=== PATIENT | female | born 1965 | race Caucasian/White ===

== ENCOUNTER 2017-05-05 15:20 | Emergency (ER) | payer MEDICARE, MEDICAID ==
--- NOTE | 2017-05-05 17:07 | ER Document Report ---
ED General - General Chief Complaint: Shoulder Pain Stated Complaint: SHOULDER INJURY Time Seen by Provider: 05/05/17 16:50 Notes: 51-year-old female [id number] with history of cervical disc disease and "herniated disks all open down my spine" presents with right shoulder pain posterior anterior and lateral radiating to her elbow constant worse with movement since she had 2 injuries lifting to objects the day before and after Ximena. No numbness or tingling. No elbow injury. - Related Data Allergies/Adverse Reactions: No Known Allergies Allergy (Unverified 05/05/17 15:23) Home Medications: Current Home Medications Cyclobenzaprine HCl [Flexeril 10 mg Tablet] 10 mg PO PRN PRN 05/05/17 [History] Gabapentin [Neurontin 300 mg Capsule] 300 mg PO PRN PRN 05/05/17 [History] Hydrocodone/Acetaminophen [[place] 10-325 mg Tablet] 10 mg PO PRN PRN 05/05/17 [ History] Past Medical History - Social History Smoking Status: Current Every Day Smoker Family History: None Review of Systems - Review of Systems Notes: REVIEW OF SYSTEMS GEN: Denies fever, chills, weight loss ENT: Denies sore throat, nasal discharge, ear pain EYES: Denies blurry vision, eye pain, discharge CV: Denies chest pain, palpitations, edema RESP: Denies cough, shortness of breath, wheezing GI: Denies abdominal pain, nausea, vomiting, diarrhea MSK: Arm pain SKIN: Denies rash, skin lesions LYMPH: Denies swollen glands/lymph nodes NEURO: Denies headache, focal weakness or numbness, dizziness PSYCH: Denies depression, suicidal or homicidal ideation PHYSICAL EXAMINATION General: No acute distress, well-nourished Head: Atraumatic, normocephalic ENT: Mouth normal, oropharynx moist, no exudates or tonsillar enlargement Eyes: Conjunctiva normal, pupils equal, lids normal Neck: No JVD, supple, no guarding CVS: Normal rate, regular rhythm, no murmurs Resp: No resp distress, equal and normal breath sounds bilaterally GI: Nondistended, soft, no tenderness to palpation, no rebound or guarding Ext: No deformities, no edema, normal range of motion in upper and lower ext painful shoulder range of motion without crepitus. Mild tenderness over the radial head on the right without bruising. Back: No CVA or midline TTP Skin: No rash, warm Lymphatic: No lymphadeopathy noted Neuro: Awake, alert. Face symmetric. GCS 15. Course - Re-evaluation Re-evalutation: 05/05/17 17:08 Repeat shoulder injury in a patient with chronic orthopedic problems. Differential includes rotator cuff less likely bony because she tells me she had an x-ray at urgent care of her shoulder which was normal. She is requesting an MRI. I explained why this is not possible. I did order an elbow x-ray because she has some tenderness over the radial head. Patient is on chronic pain medication. Will recommend ice elevation weightbearing as tolerated and Motrin addicted to her normal regimen. I have discussed with the patient there likely diagnosis, aftercare plan, follow-up plans and my usual and customary return precautions. They verbalized understanding of this. 05/05/17 17:35 X-ray elbow negative - Diagnostic Test Radiology reviewed: Image reviewed, Reports reviewed Discharge - Discharge Clinical Impression: Right shoulder injury Qualifiers: Encounter type: initial encounter Qualified Code(s): S49.91XA - Unspecified injury of right shoulder and upper arm, initial encounter Condition: Good Disposition: HOME, SELF-CARE Additional Instructions: As we discussed, your x-rays are normal. There are many structures in her shoulder that could be injured, and you probably need to have an MRI done as an outpatient. Please add Motrin to your pain regimen, ice and elevate your shoulder, and follow-up with your orthopedist when you get back to [place].
--- NOTE | 2017-05-05 17:30 | RADIOLOGY REPORT (SQ) ---
EXAM DESCRIPTION: ELBOW RIGHT OVER 2 VIEWS COMPLETED DATE/TIME: 05/05/2017 5:14 pm REASON FOR STUDY: radial head ttp inj COMPARISON: None. NUMBER OF VIEWS: Four views. TECHNIQUE: AP, lateral, and both oblique radiographic images acquired of the right elbow. LIMITATIONS: None. FINDINGS: MINERALIZATION: Normal. BONES: No acute fracture or dislocation. No worrisome bone lesions. JOINT: No effusion. SOFT TISSUES: No soft tissue swelling. No foreign body. OTHER: No other significant finding. IMPRESSION: NEGATIVE STUDY OF THE RIGHT ELBOW. NO RADIOGRAPHIC EVIDENCE OF ACUTE INJURY. TECHNICAL DOCUMENTATION: JOB ID: [id number] [employer]- All Rights Reserved
[2017-05-05 18:01] VITALS: BP 110/74
== END 2017-05-05 17:59 | disposition home or self-care (01) ==
LOC: ER 15:20
DX: S49.91XA Unspecified injury of right shoulder and upper arm, initial encounter (principal); M25.511 Pain in right shoulder; M50.30 Other cervical disc degeneration, unspecified cervical region; Z79.899 Other long term (current) drug therapy; X50.9XXA Other and unspecified overexertion or strenuous movements or postures, initial encounter; F17.200 Nicotine dependence, unspecified, uncomplicated
CPT/HCPCS: 99283

== ENCOUNTER 2018-07-06 18:57 | Emergency (ER) | payer MEDICARE, MEDICAID ==
[2018-07-06] MEDS ORDERED: METOCLOPRAMIDE HCL ORAL SOLN 10 MG/10 ML UDCUP PO ONE (20:21)
[2018-07-06] MEDS ORDERED: LIDOCAINE 2% VISCOUS SOLN 20 ML UDCUP PO PRN (20:21)
[2018-07-06] MEDS ORDERED: MAG HYDROX/AL HYDROX/SIMETH SUSP 30 ML UDCUP PO PRN (20:21)
[2018-07-06] MEDS ORDERED: MAG HYDROX/AL HYDROX/SIMETH SUSP 30 ML UDCUP PO ONE (20:21)
[2018-07-06] MEDS ORDERED: LIDOCAINE 2% VISCOUS SOLN 20 ML UDCUP PO ONE (20:21)
[2018-07-06] MEDS ORDERED: METOCLOPRAMIDE HCL ORAL SOLN 10 MG/10 ML UDCUP PO PRN (20:21)
--- NOTE | 2018-07-06 20:21 | ER Document Report ---
ED Medical Screen (RME) - General Chief Complaint: Chest Pain Stated Complaint: CHEST PAIN Time Seen by Provider: 07/06/18 20:20 Notes: 52 years old female presents today with chest pain, mid abdominal pain radiating the back the last few days. No nausea vomiting. On examination lungs clear abdomen tender over the epigastrium - Related Data Allergies/Adverse Reactions: No Known Allergies Allergy (Verified 07/06/18 18:59) Past Medical History Renal/ Medical History: Denies: Hx Peritoneal Dialysis Physical Exam - Vital signs Vitals: Temp Pulse Resp BP Pulse Ox 97.8 F 73 18 136/82 H 98 07/06/18 19:16 07/06/18 19:16 07/06/18 19:16 07/06/18 19:16 07/06/18 19:16 Course - Vital Signs Vital signs: Temp Pulse Resp BP Pulse Ox 97.8 F 73 18 136/82 H 98 07/06/18 19:16 07/06/18 19:16 07/06/18 19:16 07/06/18 19:16 07/06/18 19:16
--- NOTE | 2018-07-06 21:31 | ER Document Report ---
ED General - General Chief Complaint: Chest Pain Stated Complaint: CHEST PAIN Time Seen by Provider: 07/06/18 20:20 Notes: Patient is a 52-year-old female without chronic medical problems, had a cardiac catheterization 2 years ago which was noted to be normal who presents with chest pain. In triage the patient did complain of abdominal pain but denies this complaint to me. States that she has a central chest discomfort that is a stabbing, aching pain that intimately radiates into her upper back. States that the pain is there constantly although has periods of worsening. No obvious exacerbating or relieving factors. Denies history of similar symptoms in the past. No associated shortness of breath, nausea or vomiting. On my secondary assessment the patient did complain that the pain was worsened by breathing. She has no history of DVT or pulmonary embolus. Does not use any form of estrogen. - Related Data Allergies/Adverse Reactions: No Known Allergies Allergy (Verified 07/06/18 18:59) Past Medical History - General Information source: Patient - Social History Smoking Status: Current Every Day Smoker Frequency of alcohol use: None Drug Abuse: None Lives with: Alone Family History: Reviewed & Not Pertinent Patient has suicidal ideation: No Patient has homicidal ideation: No - Past Medical History Cardiac Medical History: Reports: Hx Hypercholesterolemia, Hx Hypertension Renal/ Medical History: Denies: Hx Peritoneal Dialysis Musculoskeletal Medical History: Reports Hx Arthritis - bursitis Past Surgical History: Reports: Hx Cardiac Catheterization, Hx Cholecystectomy, Hx Hysterectomy, Hx Orthopedic Surgery - L knee Review of Systems - Review of Systems Notes: Constitutional: Negative for fever. HENT: Negative for sore throat. Eyes: Negative for visual changes. Cardiovascular: Positive for chest pain. Respiratory: Negative for shortness of breath. Gastrointestinal: Negative for abdominal pain, vomiting or diarrhea. Genitourinary: Negative for dysuria. Musculoskeletal: Negative for back pain. Skin: Negative for rash. Neurological: Negative for headaches, weakness or numbness. 10 point ROS negative except as marked above and in HPI. Physical Exam - Vital signs Vitals: Temp Pulse Resp BP Pulse Ox 97.8 F 73 18 136/82 H 98 07/06/18 19:16 07/06/18 19:16 07/06/18 19:16 07/06/18 19:16 07/06/18 19:16 Interpretation: Normal Notes: PHYSICAL EXAMINATION: GENERAL: Well-appearing, well-nourished and in no acute distress. HEAD: Atraumatic, normocephalic. EYES: Pupils equal round and reactive to light, extraocular movements intact, sclera anicteric, conjunctiva are normal. ENT: nares patent, oropharynx clear without exudates. Moist mucous membranes. NECK: Normal range of motion, supple without lymphadenopathy LUNGS: Breath sounds clear to auscultation bilaterally and equal. No wheezes rales or rhonchi. HEART: Regular rate and rhythm without murmurs ABDOMEN: Soft, nontender, normoactive bowel sounds. No guarding, no rebound. No masses appreciated. EXTREMITIES: Normal range of motion, no pitting or edema. No cyanosis. NEUROLOGICAL: No focal neurological deficits. Moves all extremities spontaneously and on command. PSYCH: Normal mood, normal affect. SKIN: Warm, Dry, normal turgor, no rashes or lesions noted. Course - Re-evaluation Re-evalutation: 07/06/18 21:32 Presentation of chest pain in an otherwise well appearing patient. Low clinical suspicion for ACS given clinical history, exam, EKG without ST elevations or depressions, and negative initial troponin. HEART score less than or equal to 3. PE also seems unlikely given clinical history, absence of tachycardia or dyspnea. Wells score 0. D-dimer is negative. CXR without evidence of pneumothorax or pneumonia. No widened mediastinum. Aortic dissection also seems unlikely given history, symmetric pulses, CXR, and vitals. No indication for serial troponins as patient has had continuous pain for almost 48 hours at this time. Overall assessment: Chest pain in a patient without evidence of cardiac or other serious etiology on workup today. I discussed with patient that, based on their age, risk factors and emergency department testing today, the likelihood that their symptoms are related to a heart attack is very low (estimated risk of heart attack or over the next 30 days of less than 1%). The patient dem onstrates decision making capacity and has verbalized an understanding of these risks to me. Based on this, the patient has chosen to follow-up as an outpatient. Usual chest pain return precautions reviewed. The patient states understanding and agreement with this plan. 07/06/18 23:43 - Vital Signs Vital signs: Temp Pulse Resp BP Pulse Ox 97.9 F 73 14 121/72 97 07/06/18 23:54 07/06/18 19:16 07/06/18 23:02 07/06/18 23:02 07/06/18 23:02 - Laboratory Result Diagrams: 07/06/18 21:11 07/06/18 21:11 Laboratory results interpreted by me: 07/06/18 21:11 AST 43 H ALT 63 H - Diagnostic Test Radiology reviewed: Image reviewed, Reports reviewed Radiology results interpreted by me: 07/06/18 23:43 Acute abdominal series: No acute pathology, chest x-ray clear without evidence of pneumothorax or infiltrate - EKG Interpretation by Me Additional EKG results interpreted by me: 07/06/18 21:33 Sinus rhythm, rate 78. No ST elevations or depressions. QTC 429. Discharge - Discharge Clinical Impression: Chest discomfort Condition: Good Disposition: HOME, SELF-CARE Additional Instructions: You were seen today for chest pain. The exact cause of your pain is unclear. However, based on your cardiac enzyme testing, chest x-ray, and EKG it does not appear that it is from an immediately life-threatening cause at this time. Although your testing here is normal is critical that you follow-up with your primary care physician for continued evaluation of this chest pain and possible stress testing. I recommended you see your physician within the next 24-48 hours to be evaluated for consideration of a stress test. Please return to emergency department immediately if you have worsening of your chest pain, shortness of breath, vomiting, become unable to exert yourself due to pain or difficulty breathing, you pass out, or have any pain that radiates into your arms, jaw, or back. Please also return if you have any additional symptoms that are concerning to you.
[2018-07-06 21:37] LABS: APPEARANCE,URINE CLEAR; BILIRUBIN,URINE NEGATIVE (NEGATIVE); COLOR,URINE YELLOW; GLUCOSE, URINE NEGATIVE (NEGATIVE); KETONES,URINE NEGATIVE (NEGATIVE); LEUKOCYTE ESTERASE,URINE NEGATIVE (NEGATIVE); NITRITE,URINE NEGATIVE (NEGATIVE); PROTEIN,URINE NEGATIVE (NEGATIVE); URINE SPECIFIC GRAVITY 1.012; UROBILINOGEN,URINE NEGATIVE mg/dL (<2.0)
[2018-07-06 21:41] LABS: ABSOLUTE EOSINOPHILS # (AUTO) 0.2 10^3/uL (0.0-0.6); ABSOLUTE LYMPHOCYTES (AUTO) 3.8 10^3/uL (0.5-4.7); ABSOLUTE MONOCYTES (AUTO) 0.6 10^3/uL (0.1-1.4); ABSOLUTE NEUT (AUTO) 5.8 10^3/uL (1.7-8.2); BASOPHILS % (AUTO) 0.3 % (0-2); EOSINOPHILS % (AUTO) 1.7 % (0-6); HEMATOCRIT 39.9 % (36.0-47.0); HEMOGLOBIN 13.8 g/dL (12.0-15.5); LYMPHOCYTES % (AUTO) 36.7 % (13-45); MEAN CORPUSCULAR HEMOGLOBIN 29.7 pg (27.0-33.4); MEAN CORPUSCULAR HGB CONC 34.5 g/dL (32.0-36.0); MEAN CORPUSCULAR VOLUME 86 fl (80-97); MONOCYTES % (AUTO) 5.6 % (3-13); PLATELET COUNT 205 10^3/uL (150-450); RED BLOOD COUNT 4.63 10^6/uL (3.72-5.28); RED CELL DISTRIBUTION WIDTH 12.2 % (11.5-14.0); SEGMENTED NEUTROPHILS % (AUTO) 55.7 % (42-78); TOTAL CELLS COUNTED % (AUTO) 100 %; WHITE BLOOD COUNT 10.4 10^3/uL (4.0-10.5)
[2018-07-06 21:49] LABS: ALANINE AMINOTRANSFERASE 63 U/L (9-52); ALBUMIN 4.2 g/dL (3.5-5.0); ALKALINE PHOSPHATASE 106 U/L (38-126); ANION GAP 9 (5-19); ASPARTATE AMINO TRANSFERASE 43 U/L (14-36); BILIRUBIN,DIRECT 0.2 mg/dL (0.0-0.4); BILIRUBIN,TOTAL 0.6 mg/dL (0.2-1.3); BLOOD UREA NITROGEN 16 mg/dL (7-20); CALCIUM 9.7 mg/dL (8.4-10.2); CARBON DIOXIDE 27 mmol/L (22-30); CHLORIDE 105 mmol/L (98-107); GLUCOSE 94 mg/dL (75-110); LIPASE 32.2 U/L (23-300); POTASSIUM 3.9 mmol/L (3.6-5.0); SODIUM 140.7 mmol/L (137-145); TOTAL PROTEIN 6.6 g/dL (6.3-8.2)
--- NOTE | 2018-07-06 21:56 | RADIOLOGY REPORT (SQ) ---
EXAM DESCRIPTION: XR ABDOMEN SUPINE AND ERECT WITH CHEST (ABD ACUTE SERIES) COMPLETED DATE/TME: 07/06/2018 21:31 CLINICAL HISTORY: 52 years, Female, cp, abdominal pain COMPARISON: None. FINDINGS: The lungs are clear. There are no pleural abnormalities. The cardiac silhouette and pulmonary vessels are normal. Nonobstructive bowel gas pattern. No abnormal calcifications. No acute osseous abnormality. IMPRESSION: No acute abnormality.
[2018-07-06 22:13] LABS: CREATINE KINASE MB 0.37 ng/mL (<4.55)
[2018-07-06 22:14] LABS: TROPONIN I < 0.012 ng/mL
--- NOTE | 2018-07-06 22:16 | EKG REPORT ---
SEVERITY:- ABNORMAL ECG - SINUS RHYTHM CONSIDER ANTEROSEPTAL INFARCT : Confirmed by: Gloria Martin 06-Jul-2018 22:15:23
[2018-07-06 23:39] VITALS: BP 121/72
== END 2018-07-06 23:58 | disposition home or self-care (01) ==
LOC: ER 18:57
DX: R07.9 Chest pain, unspecified (principal); F17.200 Nicotine dependence, unspecified, uncomplicated; E78.00 Pure hypercholesterolemia, unspecified; I10 Essential (primary) hypertension; Z90.710 Acquired absence of both cervix and uterus; Z90.49 Acquired absence of other specified parts of digestive tract
CPT/HCPCS: 93005; 99284; 36415; 82553; 83690; 85025; 80053; 81001; 84484; 85379; 74022; 93010; J3490; A9270